=== PATIENT | female | born 1990 | race Caucasian/White ===

== ENCOUNTER 2021-03-27 10:54 | Emergency (ER) | payer SELFPAY ==
[2021-03-27 10:54] VITALS: BP 100/70; PULSE 62; RESP 18; TEMP 36.6; O2SAT 100; BMI 20.8
[2021-03-27] MEDS: 0.9% Normal Saline 1,000 ML 1000 ML IV (10:55)
--- NOTE | 2021-03-27 11:31 | EKG12_ITS ---
Test Reason : WEAKNESS Blood Pressure : / mmHG Vent. Rate : 060 BPM Atrial Rate : 060 BPM P-R Int : 108 ms QRS Dur : 092 ms QT Int : 444 ms P-R-T Axes : 005 047 023 degrees QTc Int : 444 ms Sinus rhythm with sinus arrhythmia with short [place] Otherwise normal ECG Confirmed by NICOLASA GARCIA, KEVIN ([id number]), editor publications LISSETTE GARCIA ([id number]) on 03/31/2021 1:49:49 PM Referred By: TRACEE Confirmed By:KEVIN BALDWIN MD
--- NOTE | 2021-03-27 11:38 | NURSING ---
NO OLD EKGS
--- NOTE | 2021-03-27 11:39 | EDS_ITS ---
HPI History of Present Illness Chief Complaint: Weakness Informant: patient and EMS Narrative Narrative: Patient is a 30-year-old female with a history of IBS presenting with an episode of lightheadedness and near syncope. Patient states she was at work at the [employer] when she started to feel lightheaded like she was going to pass out. She did not lose consciousness. She states that she felt really hot and felt shaky. She denies associated chest pain, shortness of breath or difficulty breathing. She denies any swelling of her legs. Denies any GI or symptoms. Her last menstrual period was 1 week ago and she does not think she is . She is not on any estrogen or control. She has a history of DVT or PE. She states that she has been feeling unwell since 2 days ago when she had her second Covid vaccine. She believes it was the Pfizer vaccine. She had to leave work early yesterday because she was feeling weak. She notes she felt better this morning so she went to work. She denies any other complaints at this time. [facility] Medical History IBS (irritable bowel syndrome) Home Medications esomeprazole magnesium [Nexium] 20 mg PO DAILY 03/27/21 [History Last Taken Unknown] potassium chloride 10 meq PO DAILY #7 tab 03/27/21 [Rx Last Taken Unknown] Allergy/AdvReac Type Severity Reaction Status Date / Time No Known Allergies Allergy Verified 03/27/21 11:14 Surgical History History of tonsillectomy and adenoidectomy Social History Smoking Status: Never smoker ROS ROS ED Constitutional Constitutional ED: Reports sweats and other Details: fatigue ; Denies chills or fever(s) Eyes Eyes: Denies blurry vision or loss of vision ENT ENT ED: Denies rhinorrhea or sore throat Cardiovascular Cardiovascular: Reports other Details: lightheaded ; Denies chest pain Respiratory/Chest Respiratory/Chest: Denies cough or dyspnea Gastrointestinal Gastrointestinal: Denies nausea or vomiting Genitourinary Genitourinary ED: Denies dysuria or hematuria Musculoskeletal Musculoskeletal: Denies arthralgias or myalgias Integumentary Denies rash or wounds Neurologic Neurologic: Denies focal weakness or headache(s) Psychiatric Psychiatric: Denies anxiety or behavioral changes EXAM Physical Exam Const Vital Signs: 03/27/21 10:54 03/27/21 11:13 03/27/21 12:21 Temperature 97.8 F Temperature Source Oral Pulse Rate 62 Pulse Rate [Lying] 66 Pulse Rate [Sitting] 62 Pulse Rate [Standing] 68 Respiratory Rate 18 Respiratory Effort Normal Non-Labored Blood Pressure 100/70 Blood Pressure [Lying] 106/61 Blood Pressure [Sitting] 113/76 Blood Pressure [Standing] 120/78 Blood Pressure Mean 80 Blood Pressure Mean [Lying] 76 Blood Pressure Mean [Sitting] 88 Blood Pressure Mean [Standing] 92 Pulse Ox 100 Oxygen Delivery Method Room Air 03/27/21 12:59 Temperature Temperature Source Pulse Rate 65 Pulse Rate [Lying] Pulse Rate [Sitting] Pulse Rate [Standing] Respiratory Rate 18 Respiratory Effort Blood Pressure 116/68 Blood Pressure [Lying] Blood Pressure [Sitting] Blood Pressure [Standing] Blood Pressure Mean Blood Pressure Mean [Lying] Blood Pressure Mean [Sitting] Blood Pressure Mean [Standing] Pulse Ox 99 Oxygen Delivery Method Positive well nourished, well developed and no apparent distress General Appearance ED: well developed HEENT Reports normocephalic atraumatic Nose: no nasal discharge General Ear: hearing grossly impaired External Ear: external ears normal Mouth ED: Yes moist mucous membranes abnormal Mouth: moist mucous membranes abnormal Eyes PERRL and EOMs intact bilaterally Neck full ROM, supple, no meningeal signs and no JVD Chest Wall inspection of chest normal Resp normal respiratory effort and normal air movement Cardio regular rate and regular rhythm GI normal to inspection, nondistended, normoactive bowel sounds Extremity normal to inspection and full ROM Neuro oriented x3 and no focal motor deficits Psych mental status grossly normal and thought process normal Skin no rashes or lesions noted and no wounds MDM MDM MDM Narrative Medical decision making narrative: Patient evaluated for fatigue and near syncopal episode. On evaluation patient peers nontoxic in no acute distress. Blood pressure is normal but slightly on the low side. Patient is given IV fluids in the ER. On reevaluation she actually feels much better. Her orthostatics are negative. Her blood pressure actually goes up from sitting to standing. Her work-up is remarkable only for a mildly low potassium of 3.1. Patient states her potassium is always low whenever she is evaluated. She is encouraged to eat high potassium foods and given short course of potassium segmentation. I suspect her generalized malaise and fatigue is actually secondary to expected immune response to her second Covid vaccine. Symptoms are probably exacerbated by working in a hot work environment. Cardiac work-up is negative. Patient is PE RC negative I do not suspect PE as the cause of her near syncope. I think patient stable for outpatient follow-up. She is referred to a PCP, Dr. Dugan, for further evaluation should her symptoms persist. She is encouraged to increase her fluid and salt intake in the meantime. Patient is counseled on signs and symptoms requiring return to the emergency room. Patient verbalizes agreement and understand this plan. Patient discharged home in stable and improved condition. Lab Data Attestation: I reviewed the patient's lab results. Labs: Laboratory Results - last 24 hr 03/27/21 03/27/21 03/27/21 10:36 10:36 11:45 WBC 4.7 RBC 4.70 Hgb 14.8 Hct 44.6 MCV 94.9 MCH 31.5 MCHC 33.2 RDW Std Deviation 39.3 RDW Coeff of [place] 11.2 L Plt Count 335 MPV 9.7 Immature Gran % (Auto) 0.400 Neut % (Auto) 45.3 L Lymph % (Auto) 33.1 [place] % (Auto) 17.9 H Eos % (Auto) 2.7 Baso % (Auto) 0.6 Absolute Neuts (auto) 2.1 Absolute Lymphs (auto) 1.57 Nucleated RBC % 0 Sodium 138 Potassium 3.1 L Chloride 105 Carbon Dioxide 24.0 Anion Gap 9 BUN 8 Creatinine 0.72 Estim Creat Clear Calc 104.31 Est GFR (MDRD) Af Amer 122 Est GFR (MDRD) Non-Af 101 BUN/Creatinine Ratio 11.0 Glucose 77 Calcium 9.7 Troponin I < 0.015 Urine Color Yellow Urine Clarity Clear Urine pH 7.0 Ur Specific [place] 1.010 Urine Protein Negative Urine Glucose (UA) Normal Urine Ketones Negative Urine Occult Blood 10 H Urine Nitrite Negative Urine Bilirubin Negative Urine Urobilinogen Normal Ur Leukocyte Esterase Negative Urine RBC 0 SEEN Urine WBC 0 SEEN Ur Squamous Epith Cells 0-5 SEEN Urine Bacteria 0 SEEN Urine Mucus 0 SEEN Urine Test Negative Rhythm Strip Rhythm Strip: Sinus Rhythm Rate: 60 Ectopy: None EKG Initial EKG: Attestation: I personally reviewed and interpreted this EKG as follows: Interpretation: Sinus Rhythm Comments: Normal sinus rhythm at a rate of 60 Mildly short MO interval at 108 Normal axis Normal QRS and QTc Normal ST segments Discharge Plan Triage Chief Complaint: Weakness ED Provider: Jovanna Fish Dx/Rx/DC Orders Clinical Impression: Hypokalemia, Near syncope Instructions: ED Hypokalemia, ED Near-Fainting, Uncertain Cause Prescriptions: New potassium chloride 10 mEq tablet extended release 10 meq PO DAILY Qty: 7 RF: 0 No Action esomeprazole magnesium [Nexium] 20 mg Capsule,Delayed Release(Dr/Ec) 20 mg PO DAILY RF: 0 Primary Care Provider: Care Physician,No Primary Referrals: Ritchie,Deandra, [NON-STAFF] - Care Physician,No Primary [Primary Care Provider] - Disposition Disposition: Home, self care Discharge Date/Time: 03/27/21 13:00
[2021-03-27 11:47] LABS: Absolute Lymphocyte Count 1.57 X10^3/uL (0.83-4.51); Absolute Neutrophil Count 2.1 X10^3/uL (2.0-7.7); Basophil# 0.03 X10^3/uL; Basophil% 0.6 % (0-1); Eosinophil# 0.13 X10^3/uL; Eosinophils% 2.7 % (0-5); Hematocrit 44.6 % (37-47); Hemoglobin 14.8 g/dL (12.0-15.0); Lymphocyte # 1.57 X10^3/ul (0.83-4.51); Lymphocyte % 33.1 % (19-41); Mean Corp Hgb Conc 33.2 g/dL (32-36); Mean Corpuscular Hgb 31.5 pg (27.0-32.0); Mean Corpuscular Volume 94.9 fL (81-99); Mean Platelet Vol. 9.7 fl (6.2-12.0); Monocyte# 0.85 X10^3/uL; Monocyte% 17.9 % (0-10); NRBC Flagged by Analyzer 0 % (0-5); Neutrophil # 2.14 X10^3/uL (2.7-7.7); Neutrophil % 45.3 % (47-70); Platelet Count 335 K/mm3 (150-450); RBC Distribution Width CV 11.2 % (11.6-14.6); RBC Distribution Width SD 39.3 fl (35.1-43.9); White Blood Count 4.7 K/mm3 (4.4-11.0)
[2021-03-27 11:52] LABS: Anion Gap 9 (5-15); BUN 8 mg/dL (7-18); Calcium,Total 9.7 mg/dL (8.5-10.1); Chloride 105 mmol/L (98-107); Creatinine, Serum 0.72 mg/dL (0.55-1.02); EST Glomerular Filtration Rate 101 mL/min (>60); Est Glom Filt Rate - Afr Amer 122 mL/min (>60); Estimated Creatinine Clearance 104.31 ml/min; Glucose 77 mg/dL (74-106); Potassium 3.1 mmol/L (3.5-5.1); Sodium Level 138 mmol/L (136-145)
[2021-03-27 11:58] LABS: Bacteria 0 SEEN /hpf (None Seen); Mucous, Urine 0 SEEN /hpf (<or=2+); Red Blood Cells-Urine 0 SEEN /hpf (0-5); White Blood Cells 0 SEEN /hpf (0-5)
[2021-03-27 12:00] LABS: Color, Urine Yellow (Yellow); Glucose, Dipstick Normal (Normal); Ketone-Dipstick Negative (Negative); Leukocyte Esterase-Dipstick Negative /ul (Negative); Nitrite-Dipstick Negative (Negative); Occult Blood-Urine 10 /ul (Negative); Protein-Dipstick Negative (Negative); Urine Bilirubin Dipstick Negative (Negative); Urine Clarity Clear (Clear); Urine Urobilinogen Normal (Normal)
[2021-03-27 12:05] LABS: Squamous Epithelial Cells - UA 0-5 SEEN /hpf (5-10)
[2021-03-27 12:06] LABS: Internal QC Validated? YES +Cl - CLEAR BKGD; Pregnancy, Urine Negative Negative
[2021-03-27 12:21] VITALS: BP 106/61; BP 113/76; BP 120/78; PULSE 62; PULSE 66; PULSE 68
[2021-03-27 12:59] VITALS: BP 116/68; PULSE 65; RESP 18; O2SAT 99
== END 2021-03-27 13:00 | disposition home or self-care (01) ==
PROVIDERS: Emergency Provider Emergency Medicine
DX: E87.6 Hypokalemia (principal); R55 Syncope and collapse; K58.9 Irritable bowel syndrome, unspecified; Z79.899 Other long term (current) drug therapy; Z86.718 Personal history of other venous thrombosis and embolism
CPT/HCPCS: 80048; 81001; 81025; 84484; 85025; 93005; 99285

== ENCOUNTER 2021-04-11 19:02 | Emergency (ER) | payer SELFPAY ==
[2021-04-11 19:03] VITALS: BP 122/85; PULSE 72; RESP 15; TEMP 36.3; O2SAT 99; BMI 21.4
[2021-04-11 19:37] LABS: Absolute Lymphocyte Count 2.56 X10^3/uL (0.83-4.51); Absolute Neutrophil Count 3.9 X10^3/uL (2.0-7.7); Basophil# 0.03 X10^3/uL; Basophil% 0.4 % (0-1); Eosinophil# 0.15 X10^3/uL; Hematocrit 40.4 % (37-47); Hemoglobin 13.5 g/dL (12.0-15.0); Lymphocyte # 2.56 X10^3/ul (0.83-4.51); Lymphocyte % 34.9 % (19-41); Mean Corp Hgb Conc 33.4 g/dL (32-36); Mean Corpuscular Hgb 32.1 pg (27.0-32.0); Mean Platelet Vol. 9.4 fl (6.2-12.0); Monocyte# 0.69 X10^3/uL; Monocyte% 9.4 % (0-10); NRBC Flagged by Analyzer 0 % (0-5); Neutrophil # 3.88 X10^3/uL (2.7-7.7); Neutrophil % 52.9 % (47-70); Platelet Count 309 K/mm3 (150-450); RBC Distribution Width CV 11.3 % (11.6-14.6); RBC Distribution Width SD 40.1 fl (35.1-43.9); Red Blood Count 4.21 M/mm3 (4.2-5.4); White Blood Count 7.3 K/mm3 (4.4-11.0)
[2021-04-11 19:42] LABS: Internal QC Validated? YES +Cl - CLEAR BKGD; Pregnancy, Serum, hCG Quali. NEGATIVE Negative
[2021-04-11 19:45] LABS: Anion Gap 6 (5-15); BUN 9 mg/dL (7-18); BUN/Creat Ratio 11.8 RATIO (10-20); Calcium,Total 8.7 mg/dL (8.5-10.1); Chloride 106 mmol/L (98-107); Creatinine, Serum 0.76 mg/dL (0.55-1.02); EST Glomerular Filtration Rate 96 mL/min (>60); Est Glom Filt Rate - Afr Amer 116 mL/min (>60); Estimated Creatinine Clearance 79.16 ml/min; Glucose 106 mg/dL (74-106); Potassium 3.6 mmol/L (3.5-5.1); Sodium Level 138 mmol/L (136-145)
[2021-04-11 19:54] LABS: Bacteria 0 SEEN /hpf (None Seen); Mucous, Urine 0 SEEN /hpf (<or=2+); Red Blood Cells-Urine 0 SEEN /hpf (0-5)
[2021-04-11 19:55] LABS: Color, Urine Yellow (Yellow); Glucose, Dipstick Normal (Normal); Ketone-Dipstick Negative (Negative); Leukocyte Esterase-Dipstick 25 /ul (Negative); Nitrite-Dipstick Negative (Negative); Occult Blood-Urine Negative /ul (Negative); Protein-Dipstick Negative (Negative); Urine Bilirubin Dipstick Negative (Negative); Urine Clarity Clear (Clear); Urine Urobilinogen Normal (Normal)
--- NOTE | 2021-04-11 20:00 | EX.ED.DYSGE1 ---
HPI History of Present Illness Chief Complaint: Abd Pain Narrative Narrative: 30-year-old female presenting with diffuse abdominal pain. She states she ate steak last night which she also states is usually a bad idea for her due to IBS. Now she feels bloating and cramping. Patient denies fever or chills. She denies nausea or vomiting. She denies constipation but states she did have some diarrhea. PFSH PFS Medical History IBS (irritable bowel syndrome) Home Medications esomeprazole magnesium [Nexium] 20 mg PO DAILY 03/27/21 [History Last Taken Unknown] potassium chloride 10 meq PO DAILY #7 tab 03/27/21 [Rx Last Taken Unknown] Allergy/AdvReac Type Severity Reaction Status Date / Time No Known Allergies Allergy Verified 04/11/21 19:05 Surgical History History of tonsillectomy and adenoidectomy Social History Smoking Status: Never smoker ROS ROS ED Constitutional Constitutional ED: Denies chills or fever(s) Eyes Eyes: Denies blurry vision or change in vision ENT ENT ED: Denies ear pain or rhinorrhea Cardiovascular Cardiovascular: Denies chest pain or palpitations Respiratory/Chest Respiratory/Chest: Denies cough or dyspnea Gastrointestinal Gastrointestinal: Reports abdominal pain and diarrhea Genitourinary Genitourinary ED: Denies dysuria or hematuria Musculoskeletal Musculoskeletal: Denies arthralgias or myalgias Integumentary Denies abscess or rash Neurologic Neurologic: Denies headache(s) EXAM Physical Exam Const Vital Signs: 04/11/21 19:03 Temperature 97.3 F L Temperature Source Temporal Pulse Rate 72 Respiratory Rate 15 Blood Pressure 122/85 H Blood Pressure Mean 97 Pulse Ox 99 Oxygen Delivery Method Room Air Positive well nourished General Appearance ED: NAD HEENT Reports moist mucous membranes Negative for trauma Eyes PERRL and EOMs intact bilaterally Resp normal respiratory effort and clear to auscultation bilaterally Cardio regular rate and regular rhythm GI non-distended GI Narrative: Diffuse mild generalized tenderness. Abdomen is nonperitoneal. Palpation: soft Neuro oriented x3 and CN's II-XII intact bilaterally Sensorium / Orientation: alert Psych mental status grossly normal Skin no rashes or lesions noted and no wounds MDM MDM MDM Narrative Medical decision making narrative: Patient presenting with generalized cramping abdominal pain. she states that she should normally not eat steak because of these symptoms as it seems to exacerbate her IBS. She has been having a small amount of diarrhea. She denies fever or chills. Her vital signs are stable and she is afebrile. Her work-up today shows no leukocytosis. Hemoglobin Hock[place] are stable. Renal function electrolytes are normal. Serum is negative. Patient counseled based on physical exam, history, lab work I do not believe she needs a CT. She states as long as the lab work is okay I do not want a CT. Patient counseled on return precautions. She stable for discharge at this time. Impression: 1. Abdominal pain Lab Data Attestation: I reviewed the patient's lab results. Labs: Laboratory Results - last 24 hr 04/11/21 04/11/21 04/11/21 19:20 19:20 19:20 WBC 7.3 RBC 4.21 Hgb 13.5 Hct 40.4 MCV 96.0 MCH 32.1 H MCHC 33.4 RDW Std Deviation 40.1 RDW Coeff of [place] 11.3 L Plt Count 309 MPV 9.4 Immature Gran % (Auto) 0.400 Neut % (Auto) 52.9 Lymph % (Auto) 34.9 [place] % (Auto) 9.4 Eos % (Auto) 2.0 Baso % (Auto) 0.4 Absolute Neuts (auto) 3.9 Absolute Lymphs (auto) 2.56 Nucleated RBC % 0 Sodium 138 Potassium 3.6 Chloride 106 Carbon Dioxide 26.0 Anion Gap 6 BUN 9 Creatinine 0.76 Estim Creat Clear Calc 79.16 Est GFR (MDRD) Af Amer 116 Est GFR (MDRD) Non-Af 96 BUN/Creatinine Ratio 11.8 Glucose 106 Calcium 8.7 Serum , Qual NEGATIVE Discharge Plan Triage Chief Complaint: Abd Pain ED Provider: Holden Mauro Dx/Rx/DC Orders Instructions: ED Abdominal Pain Unkn Cause Fem Prescriptions: No Action esomeprazole magnesium [Nexium] 20 mg Capsule,Delayed Release(Dr/Ec) 20 mg PO DAILY RF: 0 potassium chloride 10 mEq tablet extended release 10 meq PO DAILY Qty: 7 RF: 0 Primary Care Provider: Care Physician,No Primary Referrals: Amanda Randall MD [STAFF PHYSICIAN] - As Needed Care Physician,No Primary [Primary Care Provider] - Disposition Disposition: Home, Self Care
[2021-04-11 20:01] LABS: White Blood Cells 0-5 SEEN /hpf (0-5)
[2021-04-11 20:02] LABS: Squamous Epithelial Cells - UA 0-5 SEEN /hpf (5-10)
[2021-04-11 20:03] VITALS: BP 100/66; PULSE 65; RESP 16
== END 2021-04-11 20:04 | disposition home or self-care (01) ==
LOC: ED 20:03
PROVIDERS: Emergency Provider Student in an Organized Health Care Education/Training Program
DX: R10.9 Unspecified abdominal pain (principal); K58.0 Irritable bowel syndrome with diarrhea
CPT/HCPCS: 80048; 81001; 84703; 85025; 99282; A4216

== ENCOUNTER 2021-10-10 13:20 | Emergency (ER) | payer SELFPAY ==
[2021-10-10 13:20] VITALS: BP 121/67; PULSE 86; RESP 17; TEMP 35.9; O2SAT 97; BMI 26.0
[2021-10-10 15:21] VITALS: BP 118/70; PULSE 66; RESP 16; O2SAT 99
--- NOTE | 2021-10-10 16:23 | EX.ED.VIS.PS ---
HPI HPI - Psych History of Present Illness Chief Complaint: Anxiety Informant: patient Narrative Narrative: Patient states she was at work, she felt a panic attack coming on, she started breathing heavily, causing her to feel lightheaded and tingly all over, she had this happen before but it has been a while. During holiday season she has been under a tremendous amount of stress, working holidays, lots of work, and she felt like she was having trouble getting it to resolve so she presents to the emergency department. Her significant other is here upon my evaluation, which was delayed due to critical patient in the emergency department, she states once he got there they were talking and now she is feeling much better and asymptomatic and ready to go home. She denies any suicidal ideation, she is very pleasant denies and denies any recent illness, injury. [facility] Medical History IBS (irritable bowel syndrome) Home Medications NK 10/10/21 [History Last Taken Unknown] Allergy/AdvReac Type Severity Reaction Status Date / Time No Known Allergies Allergy Verified 10/10/21 13:25 Surgical History History of tonsillectomy and adenoidectomy Social History Smoking Status: Never smoker ROS ROS ED Constitutional Constitutional ED: Denies chills or fever(s) Eyes Eyes: Denies change in vision or diplopia ENT ENT ED: Denies rhinorrhea or sore throat Cardiovascular Cardiovascular: Denies chest pain or palpitations Respiratory/Chest Respiratory/Chest: Denies cough or dyspnea Gastrointestinal Gastrointestinal: Denies abdominal pain, diarrhea, nausea or vomiting Genitourinary Genitourinary ED: Denies dysuria or hematuria Musculoskeletal Musculoskeletal: Denies back pain or neck pain Integumentary Denies abscess or rash Neurologic Neurologic: Denies headache(s), paresthesias or weakness Psychiatric Psychiatric: Reports anxiety; Denies suicidal thoughts EXAM Physical Exam Const Vital Signs: 10/10/21 13:20 10/10/21 15:21 Temperature 96.7 F L Temperature Source Temporal Pulse Rate 86 66 Respiratory Rate 17 16 Blood Pressure 121/67 H 118/70 Blood Pressure Mean 85 86 Pulse Ox 97 99 Oxygen Delivery Method Room Air Positive well nourished and well developed General Appearance ED: well developed and NAD HEENT Reports moist mucous membranes normocephalic and atraumatic Eyes PERRL and EOMs intact bilaterally Neck full ROM and supple Resp normal respiratory effort and clear to auscultation bilaterally Cardio regular rate, regular rhythm and no murmurs Rate: Negative for tachycardic GI non-tender and non-distended Auscultation: normoactive bowel sounds Palpation: soft Back/Spine no CVA tenderness General Back: other FROM Extremity normal to inspection General Extremety ED: Negative for edema, pulses abnormal or tenderness General Extremity: Negative for edema or pulses abnormal Neuro oriented x3, CN's II-XII intact bilaterally and no sensory deficits noted Sensorium / Orientation: awake and alert Motor Exam: strength 5/5 throughout Psych mental status grossly normal, thought process normal, cooperative, affect normal and speech normal Psych Narrative: Smiling, pleasant Attitude: calm Speech: normal speech Skin no rashes or lesions noted and no wounds MDM MDM Rhythm Strip Rhythm Strip: Sinus Rhythm Rate: 65 Ectopy: None Discharge Plan Triage Chief Complaint: Anxiety ED Provider: Jere Valente Dx/Rx/DC Orders Clinical Impression: Panic attack Instructions: ED Panic Attack Prescriptions: No Action NK RF: 0 Primary Care Provider: Care Physician,No Primary Referrals: Poornima Moore [NON-STAFF] - As Needed Care Physician,No Primary [Primary Care Provider] - Disposition Disposition: Home, Self Care Discharge Date/Time: 10/10/21 16:40
== END 2021-10-10 16:40 | disposition home or self-care (01) ==
PROVIDERS: Emergency Provider Emergency Medicine
DX: F41.0 Panic disorder [episodic paroxysmal anxiety] (principal); K58.9 Irritable bowel syndrome, unspecified
CPT/HCPCS: 99284